=== PATIENT | female | born 1970 | race Caucasian/White ===

== ENCOUNTER 2017-02-28 12:24 | Day surgery (SDC) | payer OTHER ==
[~2017-02-28 12:24] MED LIST: BACITRACIN 14 APP/14 GM TUBE TOPICAL ONE; BACITRACIN 50,000 UNITS VIAL IM ONE; BUPIVACAINE/EPI 0.25% 1 VIAL VIAL ONE; NORMAL SALINE FLUSH 20 ML ONE
[2017-02-28] MEDS ORDERED: FENTANYL 100 MCG/2 ML VIAL ONE (12:41)
[2017-02-28] MEDS ORDERED: NORMAL SALINE IV ONE (12:46)
[2017-02-28] MEDS ORDERED: LIDOCAINE HCL 1% 20 ML VIAL SUBCUT ONE (12:46)
[2017-02-28] MEDS: FAMOTIDINE IN SALINE, ISO-OSM 20 MG/50 ML PIGGYBACK IV SCH (12:49)
[2017-02-28] MEDS: ACETAMINOPHEN 1,000 MG/100 ML VIAL IV SCH (12:57)
[2017-02-28] MEDS ORDERED: ACETAMINOPHEN 1,000 MG/100 ML VIAL IV ONE (12:59)
[2017-02-28] MEDS ORDERED: ceFAZolin 1 GM in NORMAL SALINE MINI-BAG+ 100 ML IV ONE (13:04)
[2017-02-28] MEDS: ceFAZolin 1 GM in NORMAL SALINE MINI-BAG+ 100 ML IV ONE (13:05)
[2017-02-28] MEDS ORDERED: ceFAZolin 1 GM/10 ML VIAL ONE (13:12)
--- NOTE | 2017-02-28 14:36 | OPERATIVE REPORT ---
DATE OF SURGERY: 02/28/17 SURGEON: Rc Diehl DO ANESTHESIA: Local with sedation. PREOPERATIVE DIAGNOSIS: Right carpal tunnel syndrome. POSTOPERATIVE DIAGNOSIS: Right carpal tunnel syndrome. OPERATION PERFORMED: Right carpal tunnel release. ESTIMATED BLOOD LOSS: Minimal. COMPLICATIONS: None. PROCEDURE NOTE: The patient was brought to the operating room suite and after administration of sedation, the right upper extremity was prepped and draped in a sterile fashion. All bony prominences were well padded. The operative site was injected with 0.25% bupivacaine with epinephrine prior to incision. An incision was made over the volar aspect of the wrist at one of the palmar creases. Dissection was taken down. All neurovascular structures were avoided. Any small bleeders were cauterized with a bipolar device. The transverse carpal fascia was well visualized and was undermined superficially. A small kailee incision was made in the transverse carpal fascia and the contents of the carpal tunnel were well visualized. The transverse carpal ligament was then undermined both superficially and deep, and a grooved instrument was inserted in through the transverse carpal fascia. The transverse carpal fascia was released under direct visualization with retractors in place both proximally and distally. The nerve was well visualized which was edematous and did have some adhesions which were also released. The operative site was copiously irrigated with bacitracin infused with normal saline and closed in a stepwise fashion utilizing 0 Vicryl, followed by 3-0 Vicryl, followed by 3-0 nylon at the skin in simple interrupted sutures. The incision was dressed with bacitracin ointment, Xeroform, 4x4s fluffs, a well-padded plaster splint followed by an Pieter bandage. The patient was transferred from the operating room suite to the recovery room in stable condition. TED
[2017-02-28 14:47] VITALS: TEMP 97.9
[2017-02-28 14:48] VITALS: BP 122/60; PULSE 66; RESP 15; O2SAT 94
--- NOTE | 2017-03-07 14:48 | PREOPERATIVE H&P ---
History of Present Illness (Rc Diehl DO; 02/23/2017 10:03 AM) The patient is a 46 year old female. Patient presents for her preop visit for her right carpal tunnel release. She has had persistent right hand numbness with paresthesias. She has used splinting and NSAIDs. Problem List/Past Medical (Rc Diehl DO; 02/23/2017 10:04 AM) Bilateral carpal tunnel syndrome (G56.03) Obesity (BMI 30-39.9) (E66.9) Medial knee pain, right (M25.561) Patellofemoral dysfunction of left knee (M25.862) Preoperative cardiovascular examination (Z01.810) Allergies (Cony Orozco RN; 02/23/2017 9:30 AM) No Known Drug Ucgopoimb82/21/2016 Family History (Coyn Orozco RN; 02/23/2017 9:30 AM) Family Members In General In stable health. Father COPD; smoker Mother COPD; smoker; lung CA; breast CA Brother 1 Healthy Brother 2 Healthy Son 1 Healthy; smoker Daughter 1 Healthy; smoker Daughter 2 Healthy; smoker Social History (Cony Orozco, RN; 02/23/2017 9:30 AM) Marital status . [place] Alcohol Use Occasional alcohol use. Drug Use Uses marijuana. Tobacco Use Never smoker. Medication History (Cony Orozco RN; 02/23/2017 9:30 AM) Krill Oil (Oral) Active. Fiber (Oral) Active. Multivitamin (Oral) Active. Medications Reconciled Past Surgical History (Rc Diehl DO; 02/23/2017 10:04 AM) Arthroscopy of Knee Right Tubal Ligation Diagnostic Studies History (Rc Diehl DO; 02/23/2017 10:04 AM) EKG05 Within Normal Limits. NSR, RSR' in V1 but normal duration QRS, low voltage likely related to obesity Review of Systems (Rc Diehl DO; 02/23/2017 10:04 AM) General Not Present- Chills and Fever. Skin Not Present- Erythema, Skin Color Changes and Skin Problems. HEENT Not Present- Sleep Apnea. Neck Not Present- Neck Pain. Respiratory Not Present- Cough and Shortness of Breath. Cardiovascular Not Present- Chest Pain, Difficulty Breathing On Exertion, Fainting and Leg Pain and/or Swelling. Gastrointestinal Not Present- Abdominal Pain, Nausea and Vomiting. Female Genitourinary Not Present- Painful Urination. Musculoskeletal Not Present- Decreased Range of Motion, Joint Pain, Joint Stiffness, Joint Swelling, Muscle Pain and Muscle Weakness. Neurological Not Present- Dizziness, Focal Neurological Symptoms, Numbness in extremities, Trouble walking and Weakness. Psychiatric Not Present- Anorexia, Anxiety and Depression. Endocrine Not Present- Weight Loss. Hematology Not Present- Bleeding Problems, DVT and Easy Bruising. Vitals (Cony Orozco RN; 02/23/2017 9:29 AM) 02/23/2017 9:28 AM Weight: 228 lb Height: 64in Body Surface Area: 2.07 m Body Mass Index: 39.14 kg/m Temp.: 98.2F Pulse: 80 (Regular) Resp.: 16 (Unlabored) BP: 120/64 (Sitting, Left Arm, Standard) Physical Exam (Rc Diehl DO; 02/23/2017 10:04 AM) Physical examination of the right hand demonstrates positive Tinel sign, positive Phalen's. Diminished sensation over the median nerve distribution. Normal sensation and adequate perfusion. Assessment & Plan (Rc Diehl DO; 02/23/2017 10:06 AM) Carpal tunnel syndrome of right wrist (G56.01) Impression: After educating the patient regarding treatment options with their associated risks and benefits, the patient elected to proceed with surgical treatment of the injury/pathology with RIGHT CARPAL TUNNEL RELEASE. The risks and benefits of the specific procedure were explained and all questions and concerns were addressed and answered. Post operative rehabilitation requirements and expectations for optimal outcome were reviewed and the patient confirmed understanding these and committed to compliance. All questions answered. Signed by Rc Diehl DO (02/23/2017 10:06 AM) Patient seen at bedside. No interval changes. Signed Rc Diehl DO 2016. TED
== END 2017-02-28 14:35 | disposition home or self-care (01) ==
LOC: SDS 12:24
PROVIDERS: ATTEND Orthopaedic Surgery
DX: G56.01 Carpal tunnel syndrome, right upper limb (principal); E66.9 Obesity, unspecified; M25.561 Pain in right knee
CPT/HCPCS: J0690; J7040